=== PATIENT | male | born 1995 | race Caucasian/White ===

== ENCOUNTER 2021-10-09 23:00 | Emergency (ER) | payer OTHER ==
[~2021-10-09] VITALS: Ht 170.2 cm; Wt 96.8 kg
[2021-10-09] MEDS ORDERED: ONDANSETRON 4MG/2ML VIAL IV ONE (23:25)
[2021-10-09] MEDS ORDERED: NS 1,000 ML IV ONE (23:25)
[2021-10-10 00:18] LABS: BASO % 0.4 % (0.0-1.0); EOS % 0.1 % (0.0-3.0); HEMATOCRIT 47.3 % (42.0-52.0); HEMOGLOBIN 16.7 g/dl (13.5-17.5); LYMPH # 0.6 10^3/uL (1.5-5.0); LYMPH % 6.3 % (24.0-44.0); MEAN CORPUSCULAR HEMOGLOBIN 29.8 pg (27.0-33.0); MEAN CORPUSCULAR HGB CONC 35.3 g/dl (32.0-36.5); MEAN CORPUSCULAR VOLUME 84.5 fl (80.0-96.0); MONO # 0.6 10^3/uL (0.0-0.8); MONO % 6.6 % (2.0-8.0); NEUTROPHILS # 8.2 10^3/uL (1.5-8.5); NEUTROPHILS % 86.3 % (36.0-66.0); PLATELET COUNT, AUTOMATED 184 10^3/uL (150-450); WHITE BLOOD COUNT 9.5 10^3/uL (4.0-10.0)
[2021-10-10 00:41] LABS: ALBUMIN 3.8 GM/DL (3.2-5.2); ALT/SGPT 40 U/L (12-78); AMYLASE 41 U/L (25-115); BILIRUBIN,DIRECT 0.2 MG/DL (0.0-0.2); BILIRUBIN,TOTAL 0.9 MG/DL (0.2-1.0); BLOOD UREA NITROGEN 17 MG/DL (7-18); C REACTIVE PROTEIN QUANTITATIV 3.04 MG/DL (0.00-0.30); CALCIUM LEVEL 8.8 MG/DL (8.5-10.1); CARBON DIOXIDE LEVEL 27 MEQ/L (21-32); CHLORIDE LEVEL 104 MEQ/L (98-107); CREATININE FOR GFR 0.96 MG/DL (0.70-1.30); GLOMERULAR FILTRATION RATE > 60.0 (>60); GLUCOSE, FASTING 113 MG/DL (70-100); LIPASE 36 U/L (73-393); POTASSIUM SERUM 3.8 MEQ/L (3.5-5.1); SODIUM LEVEL 137 MEQ/L (136-145); TOTAL PROTEIN 6.9 GM/DL (6.4-8.2)
[2021-10-10 00:47] LABS: ERYTHROCYTE SEDIMENTATION RATE 3 mm/hr (0-15)
[2021-10-10] MEDS ORDERED: NS 1,000 ML IV ONE (03:30)
[2021-10-10] MEDS ORDERED: ONDA4TAB6 PO (04:27)
[2021-10-10] MEDS ORDERED: ONDANSETRON 4 MG ORAL DISINTEGRATING TAB PO ONE (04:50)
[2021-10-10 05:15] VITALS: BP 147/73
== END 2021-10-10 05:28 | disposition home or self-care (01) ==
LOC: M ED 23:00
DX: K52.9 Noninfective gastroenteritis and colitis, unspecified (principal)
CPT/HCPCS: 80048; 80076; 82150; 83605; 83690; 85025; 85652; 86140; 87798; 96361; 96374; 99284; J2405; Q0162

== ENCOUNTER → 2021-10-10 | Outpatient (REF) | payer OTHER ==
[~2021-10-10] MED LIST: ONDA4TAB6 PO
== END ==
LOC: M LAB REF 10:25
PROVIDERS: ATTEND Internal Medicine
DX: K52.9 Noninfective gastroenteritis and colitis, unspecified (principal)

== ENCOUNTER 2022-07-24 09:23 | Emergency (ER) | payer MEDICAID, OTHER ==
[~2022-07-24] VITALS: Ht 170.2 cm; Wt 99.6 kg
[2022-07-24] MEDS ORDERED: MUCI1TAB16 PO (10:07)
[2022-07-24] MEDS ORDERED: IBUP200C25 PO (10:07)
[2022-07-24] MEDS ORDERED: ONDANSETRON 4MG ORAL DISINTEGRATING TAB PO ONE (12:55)
[2022-07-24] MEDS ORDERED: ACETAMINOPHEN 325 MG TAB PO ONE (12:55)
[2022-07-24] MEDS ORDERED: ONDA4TAB6 PO (13:36)
[2022-07-24 13:46] VITALS: BP 161/77
== END 2022-07-24 13:55 | disposition home or self-care (01) ==
LOC: M ED 09:23
DX: J09.X2 Influenza due to identified novel influenza A virus with other respiratory manifestations (principal); Z79.899 Other long term (current) drug therapy

== ENCOUNTER 2023-05-23 10:31 | Emergency (ER) | payer MEDICAID, OTHER ==
[~2023-05-23] VITALS: Ht 170.2 cm; Wt 95.5 kg
[~2023-05-23 10:31] MED LIST changes: +IBUP200C25 PO; +MUCI1TAB16 PO
[2023-05-23] MEDS ORDERED: KETOROLAC 60MG 2ML VIAL IM ONE (12:50)
[2023-05-23 13:34] LABS: BASO # 0.1 10^3/uL (0.0-0.2); EOS # 0.1 10^3/uL (0.0-0.5); EOS % 0.6 % (0.0-3.0); HEMATOCRIT 49.9 % (42.0-52.0); HEMOGLOBIN 16.9 g/dl (13.5-17.5); LYMPH # 2.3 10^3/uL (1.5-5.0); LYMPH % 27.4 % (24.0-44.0); MEAN CORPUSCULAR HEMOGLOBIN 29.7 pg (27.0-33.0); MEAN CORPUSCULAR HGB CONC 33.9 g/dl (32.0-36.5); MEAN CORPUSCULAR VOLUME 87.7 fl (80.0-96.0); MONO # 0.6 10^3/uL (0.0-0.8); MONO % 7.5 % (2.0-8.0); NEUTROPHILS # 5.2 10^3/uL (1.5-8.5); NEUTROPHILS % 63.1 % (36.0-66.0); PLATELET COUNT, AUTOMATED 215 10^3/uL (150-450); RED BLOOD COUNT 5.69 10^6/uL (4.30-6.10); WHITE BLOOD COUNT 8.2 10^3/uL (4.0-10.0)
[2023-05-23 13:54] LABS: HEMOGLOBIN A1c 5.6 % (4.0-6.0)
[2023-05-23 14:04] LABS: CK-MB VALUE MASS 2.4 NG/ML (<3.6)
[2023-05-23 14:08] LABS: FREE T4 1.09 NG/DL (0.89-1.76); THYROID STIMULATING HORMONE 1.093 uIU/ML (0.55-4.78)
[2023-05-23 14:09] LABS: ALBUMIN 4.4 G/DL (3.2-5.2); ALKALINE PHOSPHATASE 116 U/L (46-116); ALT/SGPT 70 U/L (7.0-40); AST/SGOT 64 U/L (<34); BILIRUBIN,DIRECT 0.2 MG/DL (<0.4); BILIRUBIN,TOTAL 0.7 MG/DL (0.3-1.2); BLOOD UREA NITROGEN 15 MG/DL (9-23); CALCIUM LEVEL 9.5 MG/DL (8.5-10.1); CARBON DIOXIDE LEVEL 28 MMOL/L (20-31); CHLORIDE LEVEL 102 MMOL/L (98-107); CREATININE FOR GFR 0.83 MG/DL (0.70-1.30); GLOMERULAR FILTRATION RATE > 60.0 (>60); GLUCOSE, FASTING 88 MG/DL (60-100); POTASSIUM SERUM 4.6 MMOL/L (3.5-5.1); SODIUM LEVEL 140 MMOL/L (136-145); TOTAL PROTEIN 7.5 G/DL (5.7-8.2)
[2023-05-23 14:23] LABS: CPK CREATINE PHOSPHOKINASE 1362 U/L (46-171); MB/CK RELATIVE INDEX 0.17 (< OR =4)
[2023-05-23] MEDS ORDERED: NS 1,000 ML IV ONE ×2 (14:30→15:35)
[2023-05-23] MEDS ORDERED: PRED20TA PO (16:17)
[2023-05-23] MEDS ORDERED: LIDO5DIS41 TD (16:17)
[2023-05-23] MEDS ORDERED: CYCL-707 PO (16:17)
[2023-05-23 17:42] VITALS: BP 128/80; TEMP 98.2; O2SAT 98
== END 2023-05-23 17:43 | disposition home or self-care (01) ==
LOC: M ED 10:31
DX: R20.2 Paresthesia of skin (principal); M54.50 Low back pain, unspecified; M62.82 Rhabdomyolysis; D69.3 Immune thrombocytopenic purpura; Z79.52 Long term (current) use of systemic steroids; Z79.899 Other long term (current) drug therapy
CPT/HCPCS: 70450; 72125; 72131; 80048; 80076; 82550; 82553; 83036; 83735; 84439; 84443; 85025; 96360; 96361; 96372; 99284; J1885

== ENCOUNTER → 2023-06-12 | Outpatient (CLI) | payer OTHER ==
[~2023-06-12] MED LIST changes: +CYCL-707 PO; +LIDO5DIS41 TD; +PRED20TA PO
[2023-06-12 10:08] LABS: BASO # 0.1 10^3/uL (0.0-0.2); BASO % 0.9 % (0.0-1.0); EOS # 0.1 10^3/uL (0.0-0.5); EOS % 1.3 % (0.0-3.0); HEMATOCRIT 49.9 % (42.0-52.0); HEMOGLOBIN 17.1 g/dl (13.5-17.5); LYMPH # 1.9 10^3/uL (1.5-5.0); LYMPH % 25.5 % (24.0-44.0); MEAN CORPUSCULAR HGB CONC 34.3 g/dl (32.0-36.5); MEAN CORPUSCULAR VOLUME 87.5 fl (80.0-96.0); MONO # 0.6 10^3/uL (0.0-0.8); MONO % 8.4 % (2.0-8.0); NEUTROPHILS # 4.8 10^3/uL (1.5-8.5); PLATELET COUNT, AUTOMATED 186 10^3/uL (150-450); WHITE BLOOD COUNT 7.6 10^3/uL (4.0-10.0)
[2023-06-12 10:22] LABS: HEMOGLOBIN A1c 5.1 % (4.0-6.0)
[2023-06-12 10:24] LABS: ERYTHROCYTE SEDIMENTATION RATE 19 mm/hr (0-15)
[2023-06-12 10:32] LABS: ALBUMIN 3.7 G/DL (3.2-5.2); ALKALINE PHOSPHATASE 116 U/L (46-116); ALT/SGPT 59 U/L (7.0-40); AST/SGOT 27 U/L (<34); BILIRUBIN,TOTAL 0.9 MG/DL (0.3-1.2); BLOOD UREA NITROGEN 19 MG/DL (9-23); CALCIUM LEVEL 9.2 MG/DL (8.5-10.1); CARBON DIOXIDE LEVEL 27 MMOL/L (20-31); CHLORIDE LEVEL 107 MMOL/L (98-107); CREATININE FOR GFR 0.75 MG/DL (0.70-1.30); GLOMERULAR FILTRATION RATE > 60.0 (>60); GLUCOSE, FASTING 97 MG/DL (60-100); POTASSIUM SERUM 4.3 MMOL/L (3.5-5.1); SODIUM LEVEL 138 MMOL/L (136-145); TOTAL PROTEIN 6.8 G/DL (5.7-8.2)
[2023-06-12 10:34] LABS: THYROID STIMULATING HORMONE 1.207 uIU/ML (0.55-4.78); VITAMIN B12 LEVEL 385 PG/ML (211-911)
[2023-06-12 10:35] LABS: FOLATE 14.1 NG/ML (>5.4)
[2023-06-12 10:36] LABS: RHEUMATOID FACTOR QUANT < 3.5 IU/ML (<14)
== END ==
LOC: M LAB 09:16
PROVIDERS: ATTEND Psychiatry & Neurology Neurology
DX: G62.9 Polyneuropathy, unspecified (principal)

== ENCOUNTER → 2023-07-15 | Outpatient (CLI) | payer OTHER | LOC: M SOG 09:52 | PROVIDERS: ATTEND Orthopaedic Surgery | DX: M50.022 Cervical disc disorder at C5-C6 level with myelopathy (principal); M25.78 Osteophyte, vertebrae ==

== ENCOUNTER → 2023-07-18 | Outpatient (CLI) | payer OTHER | LOC: M PLARAD 14:26 | PROVIDERS: ATTEND Orthopaedic Surgery | DX: M50.022 Cervical disc disorder at C5-C6 level with myelopathy (principal); M50.122 Cervical disc disorder at C5-C6 level with radiculopathy; M48.02 Spinal stenosis, cervical region; M50.123 Cervical disc disorder at C6-C7 level with radiculopathy; M51.24 Other intervertebral disc displacement, thoracic region; G95.89 Other specified diseases of spinal cord; M48.04 Spinal stenosis, thoracic region ==

== ENCOUNTER → 2023-07-30 | Outpatient (CLI) | payer OTHER ==
[2023-07-30 11:45] LABS: BASO # 0.1 10^3/uL (0.0-0.2); BASO % 0.8 % (0.0-1.0); EOS # 0.1 10^3/uL (0.0-0.5); EOS % 1.3 % (0.0-3.0); HEMATOCRIT 45.4 % (42.0-52.0); HEMOGLOBIN 15.4 g/dl (13.5-17.5); LYMPH # 2.2 10^3/uL (1.5-5.0); LYMPH % 28.2 % (24.0-44.0); MEAN CORPUSCULAR HEMOGLOBIN 29.1 pg (27.0-33.0); MEAN CORPUSCULAR HGB CONC 33.9 g/dl (32.0-36.5); MEAN CORPUSCULAR VOLUME 85.7 fl (80.0-96.0); MONO # 0.7 10^3/uL (0.0-0.8); MONO % 8.7 % (2.0-8.0); NEUTROPHILS # 4.7 10^3/uL (1.5-8.5); NEUTROPHILS % 59.9 % (36.0-66.0); PLATELET COUNT, AUTOMATED 260 10^3/uL (150-450); WHITE BLOOD COUNT 7.9 10^3/uL (4.0-10.0)
[2023-07-30 12:04] LABS: C REACTIVE PROTEIN QUANTITATIV < 0.40 MG/DL (<1.0)
[2023-07-30 12:06] LABS: ALBUMIN 3.8 G/DL (3.2-5.2); ALKALINE PHOSPHATASE 115 U/L (46-116); ALT/SGPT 33 U/L (7.0-40); AST/SGOT 20 U/L (<34); BILIRUBIN,TOTAL 0.5 MG/DL (0.3-1.2); BLOOD UREA NITROGEN 11 MG/DL (9-23); CALCIUM LEVEL 9.2 MG/DL (8.5-10.1); CARBON DIOXIDE LEVEL 28 MMOL/L (20-31); CHLORIDE LEVEL 104 MMOL/L (98-107); CREATININE FOR GFR 0.75 MG/DL (0.70-1.30); GLOMERULAR FILTRATION RATE > 60.0 (>60); GLUCOSE, FASTING 86 MG/DL (60-100); POTASSIUM SERUM 4.2 MMOL/L (3.5-5.1); SODIUM LEVEL 138 MMOL/L (136-145); TOTAL PROTEIN 6.7 G/DL (5.7-8.2)
[2023-07-30 12:07] LABS: TOTAL 25(OH) VITAMIN D 33.3 NG/ML (20.0-100.0)
== END ==
LOC: M LAB 10:51
PROVIDERS: ATTEND Orthopaedic Surgery
DX: M50.022 Cervical disc disorder at C5-C6 level with myelopathy (principal)

== ENCOUNTER 2023-08-13 06:29 | Observation (INO) | payer OTHER ==
[2023-08-13] VITALS (8 sets, daily range): BP systolic 124–142; BP diastolic 78–88; TEMP 97.8–98.8; O2SAT 95–96
[~2023-08-13] VITALS: Ht 170.2 cm; Wt 100.1 kg
[~2023-08-13 06:29] MED LIST changes: +TRANEXAMIC ACID 100 MG/ML 10ML VIAL IV ONE; +TYLENOL CODEINE PO; +ceFAZolin SOD 2 GM in IV 1 EA IV ONE
[2023-08-13] MEDS ORDERED: TRANEXAMIC ACID 100 MG/ML 10ML VIAL As Ordered ONE ×2 (06:32→09:12)
[2023-08-13] MEDS ORDERED: THROMBIN 20,000 UNITS KIT As Ordered ONE (06:32)
[2023-08-13] MEDS ORDERED: LR 1,000 ML IV SCH ×3 (06:55→13:00)
[2023-08-13] MEDS ORDERED: KETAMINE HCL 200MG/20ML VIAL As Ordered ONE (07:06)
[2023-08-13] MEDS ORDERED: MIDAZOLAM INJ 2MG/2ML VIAL As Ordered ONE ×2 (07:09→11:46)
[2023-08-13] MEDS ORDERED: HYDROmorphone HCL 2MG/ML 1ML VIAL As Ordered ONE (07:09)
[2023-08-13] MEDS ORDERED: fentaNYL 100 MCG/2 ML INJECTION As Ordered ONE (07:10)
[2023-08-13] MEDS ORDERED: ROCURONIUM BROMIDE 50MG/5ML VIAL As Ordered ONE (07:16)
[2023-08-13] MEDS ORDERED: LIDOCAINE 2% 100MG/5ML SDV (FOR ANES.) As Ordered ONE (07:16)
[2023-08-13] MEDS ORDERED: SUCCINYLCHOLINE 100MG/5ML SYRINGE As Ordered ONE (07:16)
[2023-08-13] MEDS ORDERED: propofoL 200 MG/20 ML VIAL As Ordered ONE (07:18)
[2023-08-13] MEDS ORDERED: ONDANSETRON 4MG 2ML VIAL As Ordered ONE (07:25)
[2023-08-13] MEDS ORDERED: dexmedeTOMIDine (4MCG/ML)200MCG/50ML BTL (PRECEDEX) As Ordered ONE (07:26)
[2023-08-13] MEDS ORDERED: LABETALOL 100MG/20ML VIAL As Ordered ONE (08:56)
[2023-08-13] MEDS ORDERED: METOCLOPRAMIDE INJ 10MG/2ML VIAL IV PRN (12:30)
[2023-08-13] MEDS ORDERED: oxyCODONE 5MG TAB PO PRN (12:30)
[2023-08-13] MEDS ORDERED: HYDROMORPHONE HCL 0.5 MG/ 0.5 ML SYRINGE IV PRN (12:30)
[2023-08-13] MEDS ORDERED: fentaNYL 100 MCG/2 ML INJECTION IV PRN (12:30)
[2023-08-13] MEDS ORDERED: ONDANSETRON 4MG 2ML VIAL IV PRN ×2 (12:30→13:00)
[2023-08-13] MEDS ORDERED: ACETAMINOPHEN TAB 650MG DOSE (2X325MG) PO PRN (13:00)
[2023-08-13] MEDS ORDERED: PERCOCET 5MG/325MG TAB PO PRN (13:00)
[2023-08-13] MEDS: ceFAZolin SOD 2 GM in IV 1 EA IV SCH (15:54)
[2023-08-13] MEDS: PERCOCET 5MG/325MG TAB PO PRN ×2 (15:54→22:28)
[2023-08-14] MEDS: ceFAZolin SOD 2 GM in IV 1 EA IV SCH ×2 (00:36→07:57)
[2023-08-14 01:11] VITALS: BP 126/75; TEMP 97.9; O2SAT 93
[2023-08-14] MEDS: PERCOCET 5MG/325MG TAB PO PRN (06:36)
[2023-08-14 06:44] LABS: HEMATOCRIT 42.8 % (42.0-52.0); HEMOGLOBIN 14.9 g/dl (13.5-17.5); MEAN CORPUSCULAR HEMOGLOBIN 30.2 pg (27.0-33.0); MEAN CORPUSCULAR HGB CONC 34.8 g/dl (32.0-36.5); MEAN CORPUSCULAR VOLUME 86.8 fl (80.0-96.0); PLATELET COUNT, AUTOMATED 222 10^3/uL (150-450); RED BLOOD COUNT 4.93 10^6/uL (4.30-6.10); WHITE BLOOD COUNT 13.3 10^3/uL (4.0-10.0)
[2023-08-14 06:54] LABS: PROTHROMBIN TIME 12.9 SECONDS (12.5-14.5)
[2023-08-14 07:03] VITALS: BP 140/89; TEMP 97.3; O2SAT 96
[2023-08-14 07:20] LABS: ALBUMIN 3.7 G/DL (3.2-5.2); ALKALINE PHOSPHATASE 96 U/L (46-116); ALT/SGPT 33 U/L (7.0-40); AST/SGOT 31 U/L (<34); BILIRUBIN,TOTAL 0.3 MG/DL (0.3-1.2); BLOOD UREA NITROGEN 13 MG/DL (9-23); CALCIUM LEVEL 9.2 MG/DL (8.5-10.1); CARBON DIOXIDE LEVEL 24 MMOL/L (20-31); CHLORIDE LEVEL 106 MMOL/L (98-107); GLOMERULAR FILTRATION RATE > 60.0 (>60); GLUCOSE, FASTING 144 MG/DL (60-100); POTASSIUM SERUM 4.3 MMOL/L (3.5-5.1); SODIUM LEVEL 140 MMOL/L (136-145); TOTAL PROTEIN 6.6 G/DL (5.7-8.2)
[2023-08-14] MEDS ORDERED: PERCOCET PO (09:45)
[2023-08-14 09:57] VITALS: BP 136/88; TEMP 99; O2SAT 95
== END 2023-08-14 11:15 | disposition home or self-care (01) ==
LOC: M SDC 06:29 → M MS5PR 06:30
PROVIDERS: ADMIT Orthopaedic Surgery; ATTEND Orthopaedic Surgery
DX: M50.022 Cervical disc disorder at C5-C6 level with myelopathy (principal); F41.9 Anxiety disorder, unspecified; Z79.899 Other long term (current) drug therapy
CPT/HCPCS: 20931; 22551; 22845; 36415; 76000; 80053; 80069; 85027; 85610; 87635; 96365; 96366; 97161; 97165; 97535; C1713; C1762; J0330; J0665; J0690; J1100; J1170; J1920; J2250; J2405; J3010

== ENCOUNTER → 2023-08-19 | Outpatient (CLI) | payer OTHER ==
[~2023-08-19] MED LIST changes: +PERCOCET PO; -TRANEXAMIC ACID 100 MG/ML 10ML VIAL IV ONE; -ceFAZolin SOD 2 GM in IV 1 EA IV ONE
== END ==
LOC: M SOG 14:33
PROVIDERS: ATTEND Orthopaedic Surgery
DX: M50.022 Cervical disc disorder at C5-C6 level with myelopathy (principal); Z98.1 Arthrodesis status

== ENCOUNTER → 2023-09-07 | Outpatient (CLI) | payer OTHER | LOC: M RAD 12:12 | PROVIDERS: ATTEND Orthopaedic Surgery | DX: M47.16 Other spondylosis with myelopathy, lumbar region (principal) ==

== ENCOUNTER → 2023-09-11 | Outpatient (CLI) | payer OTHER | LOC: M SOG 08:50 | PROVIDERS: ATTEND Orthopaedic Surgery | DX: M50.022 Cervical disc disorder at C5-C6 level with myelopathy (principal); Z98.890 Other specified postprocedural states ==

== ENCOUNTER → 2023-10-23 | Outpatient (CLI) | payer OTHER | LOC: M SOG 07:55 | PROVIDERS: ATTEND Orthopaedic Surgery | DX: M50.022 Cervical disc disorder at C5-C6 level with myelopathy (principal); Z97.8 Presence of other specified devices; Z98.890 Other specified postprocedural states ==

== ENCOUNTER → 2024-01-17 | Outpatient (CLI) | payer OTHER | LOC: M SOG 07:52 | PROVIDERS: ATTEND Orthopaedic Surgery | DX: M50.222 Other cervical disc displacement at C5-C6 level (principal) ==

== ENCOUNTER → 2024-04-08 | Outpatient (CLI) | payer OTHER ==
[~2024-04-08] MED LIST changes: +ONDA-282 PO; -ONDA4TAB6 PO
== END ==
LOC: M SOG 07:49
PROVIDERS: ATTEND Orthopaedic Surgery
DX: M54.2 Cervicalgia (principal); Z53.9 Procedure and treatment not carried out, unspecified reason

== ENCOUNTER → 2024-05-14 | Outpatient (CLI) | payer OTHER | LOC: M SOG 07:50 | PROVIDERS: ATTEND Orthopaedic Surgery | DX: M54.2 Cervicalgia (principal) ==

== ENCOUNTER → 2024-05-21 | Outpatient (CLI) | payer OTHER ==
[2024-05-21 11:51] LABS: BASO # 0.1 10^3/uL (0.0-0.2); BASO % 0.7 % (0.0-1.0); EOS # 0.1 10^3/uL (0.0-0.5); EOS % 1.3 % (0.0-3.0); HEMATOCRIT 46.3 % (42.0-52.0); HEMOGLOBIN 16.3 g/dl (13.5-17.5); LYMPH # 2.1 10^3/uL (1.5-5.0); LYMPH % 30.9 % (24.0-44.0); MEAN CORPUSCULAR HEMOGLOBIN 29.9 pg (27.0-33.0); MEAN CORPUSCULAR HGB CONC 35.2 g/dl (32.0-36.5); MEAN CORPUSCULAR VOLUME 84.8 fl (80.0-96.0); MONO # 0.5 10^3/uL (0.0-0.8); MONO % 7.5 % (2.0-8.0); PLATELET COUNT, AUTOMATED 192 10^3/uL (150-450); RED BLOOD COUNT 5.46 10^6/uL (4.30-6.10); WHITE BLOOD COUNT 6.7 10^3/uL (4.0-10.0)
[2024-05-21 12:06] LABS: HEMOGLOBIN A1c 5.4 % (4.0-6.0)
[2024-05-21 12:13] LABS: ALKALINE PHOSPHATASE 121 U/L (46-116); ALT/SGPT 35 U/L (7.0-40); AST/SGOT 20 U/L (<34); BILIRUBIN,TOTAL 0.7 MG/DL (0.3-1.2); BLOOD UREA NITROGEN 12 MG/DL (9-23); CALCIUM LEVEL 9.6 MG/DL (8.5-10.1); CARBON DIOXIDE LEVEL 28 MMOL/L (20-31); CHLORIDE LEVEL 110 MMOL/L (98-107); CHOLESTEROL LEVEL 163 MG/DL (<200); CHOLESTEROL RISK RATIO 4.78 (<5); CREATININE FOR GFR 0.86 MG/DL (0.70-1.30); GLOMERULAR FILTRATION RATE > 60.0 (>60); GLUCOSE, FASTING 94 MG/DL (60-100); HDL CHOLESTEROL 34.1 MG/DL (>40); LDL CHOLESTEROL 107.9 MG/DL (<100); NON-HDL-C 128.9 MG/DL; POTASSIUM SERUM 4.2 MMOL/L (3.5-5.1); SODIUM LEVEL 140 MMOL/L (136-145); TRIGLYCERIDES LEVEL 105 MG/DL (<150)
[2024-05-21 12:15] LABS: FREE T4 1.11 NG/DL (0.89-1.76); THYROID STIMULATING HORMONE 1.239 uIU/ML (0.55-4.78)
[2024-05-25 13:57] LABS: PSA FREE 0.3 ng/mL; PSA TOTAL 0.9 ng/mL (< OR = 4.0)
== END ==
LOC: M LAB 11:22
PROVIDERS: ATTEND Nurse Practitioner Adult Health
DX: M54.2 Cervicalgia (principal); M51.16 Intervertebral disc disorders with radiculopathy, lumbar region; Z13.1 Encounter for screening for diabetes mellitus; Z13.228 Encounter for screening for other metabolic disorders; Z12.5 Encounter for screening for malignant neoplasm of prostate

== ENCOUNTER → 2024-08-14 | Outpatient (CLI) | payer OTHER | LOC: M SOG 07:54 | PROVIDERS: ATTEND Orthopaedic Surgery | DX: Z98.1 Arthrodesis status (principal); M50.022 Cervical disc disorder at C5-C6 level with myelopathy ==